=== PATIENT | male | born 1940 | race Caucasian/White ===

== ENCOUNTER 2017-11-22 07:57 | Emergency (ER) | payer MEDICAID ==
[2017-11-22 08:05] VITALS: BMI 41.5
--- NOTE | 2017-11-22 09:26 | ED PDOC ---
HPI: Back Time Seen by Provider: 11/22/17 08:25 Chief Complaint (Nursing): Lower Extremity Problem/Injury Chief Complaint (Provider): Low Back Pain History Per: Patient, Family (Son) History/Exam Limitations: no limitations Onset/Duration Of Symptoms: Other Current Symptoms Are (Timing): Still Present Additional Complaint(s): 77 y/o male with a PMHx of HTN, hypercholesterolemia, and BPH presenting for evaluation of low back pain. Patient was previously at this facility for intractable back pain and was discharged yesterday before the results of his MRI were read. MRI was found suspicious for osteomyelitis and discitis. This info was discussed with Dr. Cruz, neurologist, who recommended patient should have another MRI with contrast. Patient is here with family to receive MRI. Son states patient says his pain is a bit better, and patient is in no distress. PMD: Dr. Daniela Mckenna Past Medical History Reviewed: Historical Data, Nursing Documentation, Vital Signs Vital Signs: Last Vital Signs Temp 97 F L 11/22/17 08:03 Pulse 51 L 11/22/17 08:03 Resp BP 160/79 H 11/22/17 08:03 Pulse Ox 96 11/22/17 08:03 - Medical History PMH: Benign Prostatic Hyperplasia, HTN, Hypercholesterolemia - Surgical History Surgical History: No Surg Hx - Family History Family History: States: Unknown Family Hx - Social History Alcohol: None Drugs: Denies - Home Medications Home Medications: Ambulatory Orders Medication Instructions Recorded Allopurinol [Zyloprim] 300 mg PO DAILY 11/20/17 Aspirin [Ecotrin] 81 mg PO DAILY 11/20/17 Donepezil [Aricept] 5 mg PO HS 11/20/17 Finasteride [Proscar] 5 mg PO DAILY 11/20/17 GlipiZIDE [Glucotrol] 10 mg PO BID 11/20/17 Linaclotide [Linzess] 145 mg PO DAILY 11/20/17 Losartan/Hydrochlorothiazide 1 each PO DAILY 11/20/17 [Losartan-Hctz 50-12.5 mg Tab] Metformin HCl [Glucophage] 500 mg PO BID 11/20/17 Metoprolol Succinate [Toprol Xl] 25 mg PO DAILY 11/20/17 Omeprazole 20 mg PO DAILY 11/20/17 Oxybutynin Chloride [Ditropan Xl] 5 mg PO DAILY 11/20/17 Pravastatin Sodium [Pravachol] 40 mg PO DAILY 11/20/17 Tamsulosin [Flomax] 0.4 mg PO DAILY 11/20/17 Acetaminophen/Codeine NO 2 1 tab PO BID #10 tab 11/21/17 [Tylenol/Cod 300 MG-15 MG] Cyclobenzaprine [Flexeril] 5 mg PO HS #14 tab 11/21/17 - Allergies Allergies/Adverse Reactions: Allergies Allergy/AdvReac Type Severity Reaction Status Date / Time No Known Allergies Allergy Verified 11/20/17 18:21 Review of Systems ROS Statement: Except As Marked, All Systems Reviewed And Found Negative Musculoskeletal: Positive for: Back Pain Physical Exam - Reviewed Nursing Documentation Reviewed: Yes Vital Signs Reviewed: Yes - Physical Exam Appears: Positive for: Non-toxic, No Acute Distress Head Exam: Positive for: ATRAUMATIC, NORMAL INSPECTION, NORMOCEPHALIC Skin: Positive for: Normal Color, Warm, Dry. Negative for: Rash Eye Exam: Positive for: EOMI, Normal appearance, PERRL Neck: Positive for: Normal, Painless ROM, Supple Cardiovascular/Chest: Positive for: Regular Rate, Rhythm. Negative for: Murmur Respiratory: Positive for: Normal Breath Sounds. Negative for: Respiratory Distress Gastrointestinal/Abdominal: Positive for: Normal Exam, Soft. Negative for: Tenderness Back: Positive for: Normal Inspection Extremity: Positive for: Normal ROM. Negative for: Pedal Edema, Deformity Neurologic/Psych: Positive for: Alert, Oriented. Negative for: Motor/Sensory Deficits - ECG O2 Sat by Pulse Oximetry: 96 (RA) Pulse Ox Interpretation: Normal Medical Decision Making Medical Decision Makin:25 Impression: Low back pain Plan: -CRP -Erythrocyte sedimentation rate -MRI lumbar spine -Reevaluation Scribe Attestation: Documented by Abisai Jacobsen, acting as a scribe for Ping Buck MD. Provider Scribe Attestation: All medical record entries made by the Scribe were at my direction and personally dictated by me. I have reviewed the chart and agree that the record accurately reflects my personal performance of the history, physical exam, medical decision making, and the department course for this patient. I have also personally directed, reviewed, and agree with the discharge instructions and disposition. 2.00p - case d/w Dr. Mckenna. Admit to med/surg. ID and NSGY consult. Disposition - Clinical Impression Clinical Impression: Osteomyelitis of lumbar spine, Lumbar discitis - Patient ED Disposition Is Patient to be Admitted: Yes Doctor Will See Patient In The: Hospital - Disposition Disposition: Transfer of Care Disposition Time: 14:10 Condition: STABLE Instructions: Osteomyelitis Forms: [facility] (Maltese) - Pt Status Changed To: Hospital Disposition Of: Inpatient - Admit Certification Admit to Inpatient:: After my assessment, the patient will require hospitalization for at least two midnights. This is because of the severity of symptoms shown, intensity of services needed, and/or the medical risk in this patient being treated as an outpatient. - POA Present On Arrival: None
[2017-11-22] MEDS ORDERED: Gadodiamide 287 MG/ML VIAL (15ML) IV ONE (11:44)
[2017-11-22 13:50] VITALS: RESP 18
--- NOTE | 2017-11-22 14:08 | MRI ---
Date of service: 11/22/2017 PROCEDURE: LUMBAR SPINE MRI WITH AND WITHOUT CONTRAST HISTORY: back pain with abnormal MRI w/o contrast COMPARISON: Noncontrast lumbar spine MRI 11/21/2017. TECHNIQUE: An MR examination of the lumbar spine was performed using fat-suppressed T1 weighted imaging in sagittal and axial planes both prior to and following intravenous gadolinium administration. FINDINGS: There is a heterogeneous pattern of Marrow which is again identified throughout the lumbar spine as well as the visualized T12 vertebral body in a pattern that may reflect marrow disorder. No interval fracture or spondylolisthesis although numerous Schmorl's nodes are identified affecting upper and lower endplates from L2 through L5 once again. While there is limited enhancement is seen associated with degenerative endplates at L2, L3, L4 and L5, many of which are associated with Schmorl's node defects, the previously described signal abnormality at the inferior endplate of L2 and superior endplate of L3 enhances enhancement is prominent at the right paraspinal soft tissue within or medial to the upper right psoas muscle and pattern remains suggestive of limited discitis osteomyelitis and myositis or phlegmon medial to the upper right psoas muscle. Abscess is not favored here. This area measures approximately 1.2 x 3.2 x 2.1 cm lateral to the right of the L2-3 disc interspace level and right side of the L3 vertebral body. No definite suspicious epidural or intrathecal enhancement identified throughout the exam. [id number] degenerative central canal stenosis is again reiterated at L4-5. Incidental note is made once again of bilateral renal cysts, right greater than left. IMPRESSION: Enhancement at the mid to right side endplates of the L2-3 intervertebral disc space is identified while this could be at least in part on a degenerative basis greater enhances appreciated at the right paraspinal soft tissue within or medial to the right psoas muscle at this level and to the right of the L3 vertebral body level as well. Therefore the pattern suspicious for limited discitis osteomyelitis with right paraspinal phlegmon favored over abscess. Please see discussion above.
--- NOTE | 2017-11-22 16:20 | ED PDOC ---
- ECG O2 Sat by Pulse Oximetry: 96 (RA) Pulse Ox Interpretation: Normal Medical Decision Making Medical Decision Making: Time: [address] Buck. Patient with back pain and MRI study suggests possible discitis; patient pending Dr. Phelan (neurosurgery) advice. Time: 1515 Dr. Mckenna spoke with Dr. Phelan, who is requesting IR consult for possible biopsy. Time: [address] Fernandez, IR offset plate preparation supervisor, who states patient;s findings are too small for biopsy Time: [address] Phelan, who states patient can be discharged with instructions to follow up in 2 weeks for a repeat MRI and repeat bloodwork. Time: 1610 [address]charge plan discussed with Dr. Mckenna, who is agreeable. He states he will contact patient's son to come pick patient up. Findings and plan of discharge discussed with patient, who expresses understanding and is agreeable. Stable upon discharge home. Scribe Attestation: Documented by Rita Jimenez, acting as a scribe for Delphine Oliva MD Provider Scribe Attestation: All medical record entries made by the Scribe were at my direction and personally dictated by me. I have reviewed the chart and agree that the record accurately reflects my personal performance of the history, physical exam, medical decision making, and the department course for this patient. I have also personally directed, reviewed, and agree with the discharge instructions and disposition. Disposition - Clinical Impression Clinical Impression: Lumbar discitis - POA Present On Arrival: None - Disposition Referrals: Daniela Mckenna MD [Family Provider] - Disposition: Routine/Home Disposition Time: 16:10 Condition: STABLE Additional Instructions: FOLLOW UP WITH DR MCKENNA YOU NEED: REPEAT MRI AND LABS IN 2 WEEKS RETURN TO ER IMMEDIATELY FOR: -FEVER OR CHILLS -INTRACTABLE PAIN -URINE OR BOWEL INCONTINENCE OR RETENTION -DENSE NUMBNESS OR LEG WEAKNESS Instructions: Degenerative Disc Disease (DC) Forms: [employer] (Romans[place])
[2017-11-22 18:01] VITALS: BP 152/72; PULSE 84; TEMP 97.6
[2017-11-23 18:03] VITALS: O2SAT 96
== END 2017-11-22 17:20 | disposition home or self-care (01) ==
LOC: H.ER 07:57 → UNDOADMIN 14:35 → H.ERHOLD 14:35 → H.ER 17:20
DX: M46.46 Discitis, unspecified, lumbar region (principal)
CPT/HCPCS: 72149; 85651; 86140; 99284; A9579

== ENCOUNTER 2017-12-10 10:16 | Inpatient (IN) | payer MEDICAID ==
[2017-12-10 10:16] VITALS: BMI 41.5
--- NOTE | 2017-12-10 11:15 | ED PDOC ---
HPI: Back Time Seen by Provider: 12/10/17 11:13 Chief Complaint (Nursing): Back Pain Chief Complaint (Provider): back pain History Per: Family (77 y/o male here with complaint of right sided back pain ongoing x 3 months. Denies any dysuria/urinary frequency. Notes pain radiating to right leg intermittently. STates he was taking flexeril for pain and pain controlled. Has had MRI 11/22 demonstrating osteomyelitis/discitis. Patient was advised f/u outpatient. Currently, denies any fevers/chills. NOtes worsening pain after stopping medication and sent to ED by Dr. Mckenna.) Past Medical History Reviewed: Historical Data, Nursing Documentation, Vital Signs Vital Signs: Last Vital Signs Temp 98.4 F 12/10/17 10:22 Pulse 66 12/10/17 10:22 Resp 20 12/10/17 10:22 BP 129/80 12/10/17 10:22 Pulse Ox 94 L 12/10/17 10:22 - Medical History PMH: Benign Prostatic Hyperplasia, HTN, Hypercholesterolemia - Family History Family History: States: Unknown Family Hx - Home Medications Home Medications: Ambulatory Orders Medication Instructions Recorded Allopurinol [Zyloprim] 300 mg PO DAILY 11/20/17 Aspirin [Ecotrin] 81 mg PO DAILY 11/20/17 Donepezil [Aricept] 5 mg PO HS 11/20/17 Finasteride [Proscar] 5 mg PO DAILY 11/20/17 GlipiZIDE [Glucotrol] 10 mg PO BID 11/20/17 Linaclotide [Linzess] 145 mg PO DAILY 11/20/17 Losartan/Hydrochlorothiazide 1 each PO DAILY 11/20/17 [Losartan-Hctz 50-12.5 mg Tab] Metformin HCl [Glucophage] 500 mg PO BID 11/20/17 Metoprolol Succinate [Toprol Xl] 25 mg PO DAILY 11/20/17 Omeprazole 20 mg PO DAILY 11/20/17 Pravastatin Sodium [Pravachol] 40 mg PO DAILY 11/20/17 Tamsulosin [Flomax] 0.4 mg PO DAILY 11/20/17 Cyclobenzaprine [Flexeril] 5 mg PO HS #14 tab 11/21/17 Oxybutynin [Ditropan Tab] 5 mg PO DAILY 11/22/17 - Allergies Allergies/Adverse Reactions: Allergies Allergy/AdvReac Type Severity Reaction Status Date / Time No Known Allergies Allergy Verified 11/20/17 18:21 Review of Systems ROS Statement: Except As Marked, All Systems Reviewed And Found Negative Physical Exam - Reviewed Nursing Documentation Reviewed: Yes Vital Signs Reviewed: Yes - Physical Exam Appears: Positive for: Well, Non-toxic, No Acute Distress Head Exam: Positive for: ATRAUMATIC, NORMAL INSPECTION, NORMOCEPHALIC Skin: Positive for: Normal Color, Warm, DRY Eye Exam: Positive for: EOMI, Normal appearance, PERRL ENT: Positive for: Normal ENT Inspection Neck: Positive for: Normal, Painless ROM Cardiovascular/Chest: Positive for: Regular Rate, Rhythm Respiratory: Positive for: CNT, Normal Breath Sounds Gastrointestinal/Abdominal: Positive for: Normal Exam, Soft, Tenderness (right flank tenderness. ) Back: Positive for: Normal Inspection, Other (No bony tenderness elicited.). Negative for: R CVA Tenderness Extremity: Positive for: Normal ROM Neurologic/Psych: Positive for: Alert, Oriented - Laboratory Results Result Diagrams: 12/10/17 12:38 12/10/17 12:38 - ECG O2 Sat by Pulse Oximetry: 94 - Progress ED Course And Treament: CT ABD/PELVIS: IMPRESSION: No acute abdominal or pelvic abnormality. Little interval change 8.2 x 12.0 x 11.0 cm exophytic simple cyst in the lower pole of the right kidney. Bilateral moderate sized inguinal hernia with herniation of portion of the right lateral urinary bladder into the right inguinal hernia. The left inguinal hernia is predominantly contains fat. No other significant interval change 3 CXR:NAD MRI L SPINE: IMPRESSION: 1. Interval increase in size of right paraspinous/medial psoas phlegmon at L3 now measuring 2.7 x 1.7 x 4.7 cm. No evidence of epidural abscess. 2. Redemonstration of discitis osteomyelitis at L2-3, L3-4 and L4-5, worse at L2 -3. 3. Additional comments as described above. CASE D/W DR. MCKENNA. D/W DR. SANTIZO NEUROSURGERY WHO STATES ABSCESS IS PARASPINOUS NO NEUROSURGERY INVOLVEMENT NECESSARY. D/W INTERVENTIONAL RADIOLOGY DR. EAST WHO WILL REVIEW MRI FOR POSSIBLE IR DRAINAGE OF ABSCESS. NO ANTIBIOTICS AT THIS TIME REQUESTED BY DR. MCKENNA. WILL ADMIT TO HIM FOR FURTHER EVALUATION. Disposition - Clinical Impression Clinical Impression: Abscess of paraspinous muscles - Patient ED Disposition Is Patient to be Admitted: Yes - Disposition Disposition Time: 15:54 Condition: FAIR - Pt Status Changed To: Hospital Disposition Of: Inpatient - Admit Certification Admit to Inpatient:: After my assessment, the patient will require hospitalization for at least two midnights. This is because of the severity of symptoms shown, intensity of services needed, and/or the medical risk in this patient being treated as an outpatient.
[2017-12-10 12:50] LABS: BASO # 0.1 K/uL (0.0-0.2); BASO % 0.9 % (0.0-2.0); EOS # 0.5 K/uL (0.0-0.7); EOS % 7.4 % (0.0-4.0); LYMPH # 2.9 K/uL (1.0-4.3); LYMPH % 41.9 % (20.0-40.0); MEAN CELL VOLUME 81.9 fl (80.0-94.0); MEAN CORPUSCULAR HEMOGLOBIN 26.7 pg (27.0-31.0); MEAN CORPUSCULAR HGB CONC 32.6 g/dL (33.0-37.0); MEAN PLATELET VOLUME 8.7 fl (7.2-11.7); MONO # 0.6 K/uL (0.0-0.8); MONO % 8.4 % (0.0-10.0); NEUT # 2.9 K/uL (1.8-7.0); NEUT % 41.4 % (50.0-75.0); NRBC % 0.2 % (0.0-0.0); RBC 5.62 Mil/uL (4.40-5.90); RED CELL DISTRIBUTION WIDTH 17.6 % (11.5-14.5); WHITE BLOOD COUNT 6.9 K/uL (4.8-10.8)
[2017-12-10 12:51] LABS: ALB/GLOB RATIO 1.6 (1.0-2.1); ALT/SGPT 41 U/L (21-72); AST/SGOT 25 U/L (17-59); BLOOD UREA NITROGEN 28 mg/dl (9-20); CALCIUM 9.3 mg/dL (8.4-10.2); GFR AFRICAN-AMERICAN > 60; GFR NON-AFRICAN AMERICAN > 60; LIPASE 61 U/L (23-300)
[2017-12-10] MEDS ORDERED: Gadodiamide 287 MG/ML VIAL (15ML) IV ONE (13:06)
[2017-12-10 13:10] LABS: URINE BILIRUBIN NEGATIVE (NEGATIVE); URINE BLOOD NEGATIVE (NEGATIVE); URINE CLARITY CLEAR (Clear); URINE COLOR YELLOW (YELLOW); URINE GLUCOSE (UA) NEG (Normal); URINE LEUKOCYTE ESTERASE NEG Leu/uL (Negative); URINE PROTEIN 100 mg/dL (NEGATIVE); URINE UROBILINOGEN 0.2-1.0 mg/dL (0.2-1.0)
--- NOTE | 2017-12-10 13:11 | CT ---
Date of service: 12/10/2017 PROCEDURE: CT Abdomen and Pelvis without intravenous contrast HISTORY: right flank pain x 3 months worsening COMPARISON: None. TECHNIQUE: CT scan of the abdomen and pelvis was performed without administration of intravenous contrast. Oral contrast was not administered. Coronal and sagittal reformatted images were obtained. . Radiation dose: Total exam DLP = 940.04 mGy-cm. This CT exam was performed using one or more of the following dose reduction techniques: Automated exposure control, adjustment of the mA and/or kV according to patient size, and/or use of iterative reconstruction technique. FINDINGS: LOWER THORAX: There is dependent atelectasis in the lung bases. LIVER: Normal in size. No intrahepatic ductal dilatation. GALLBLADDER AND BILE DUCTS: No calcified gallstones. No biliary dilatation PANCREAS: Normal in size. No ductal dilatation. SPLEEN: Normal in size. ADRENALS: Normal in size. No discrete nodule. KIDNEYS AND URETERS: Normal in size without nephrolithiasis. No hydronephrosis. There are stable simple cysts, the largest 8.2 x 12.0 x 11.0 cm exophytic simple cyst in the lower pole of the right kidney, not significantly changed in size and appearance since the prior examination. VASCULATURE: No aortic aneurysm. BOWEL: The small bowel loops are normal in caliber. The colon is normal in size. No bowel dilatation or wall thickening. No bowel obstruction. APPENDIX: Normal appendix. PERITONEUM: No free fluid. No free air. LYMPH NODES: No enlarged lymph nodes. BLADDER: Well distended and grossly normal in appearance. REPRODUCTIVE: The prostate gland is normal in size BONES: No acute fracture. Diffuse bone demineralization. Ankylosing spondylitis in the visualized thoracic and upper lumbar spine. Large multilevel Schmorl's nodes in the lower lumbar vertebral bodies. OTHER FINDINGS: There are bilateral moderate sized fat containing inguinal hernias. There is herniation of part of the right lateral urinary bladder into the node right inguinal hernia. IMPRESSION: No acute abdominal or pelvic abnormality. Little interval change 8.2 x 12.0 x 11.0 cm exophytic simple cyst in the lower pole of the right kidney. Bilateral moderate sized inguinal hernia with herniation of portion of the right lateral urinary bladder into the right inguinal hernia. The left inguinal hernia is predominantly contains fat. No other significant interval change 3
--- NOTE | 2017-12-10 13:38 | RAD ---
Date of service: 12/10/2017 HISTORY: routine COMPARISON: No prior. TECHNIQUE: Chest PA and lateral FINDINGS: LUNGS: Hyperinflation, manifestations of COPD. No active pulmonary disease. PLEURA: No significant pleural effusion identified. No pneumothorax apparent. CARDIOVASCULAR: Cardiomegaly, tortuous thoracic aorta. OSSEOUS STRUCTURES: No significant abnormalities. VISUALIZED UPPER ABDOMEN: Normal. OTHER FINDINGS: None. IMPRESSION: No active disease.
--- NOTE | 2017-12-10 14:57 | MRI ---
Date of service: 12/10/2017 PROCEDURE: MR LUMBAR SPINE WITH AND WITHOUT CONTRAST HISTORY: h/o osteomyelitis/discitis on previous mri COMPARISON: 11/21/2017 TECHNIQUE: Multiecho multiplanar sequences were performed through the lumbar spine with and without the use of intravenous contrast. 20 cc Omniscan was injected intravenously. FINDINGS: There is normal alignment of the lumbar vertebral bodies. There is normal lumbar lordosis. Bone marrow signal is heterogeneous without evidence for abnormal enhancement. There are multilevel Schmorl's nodes in the lumbar spine. The conus medullaris terminates at a normal level and the nerve roots of cauda equina are normal. There is interval increase in size of abnormal enhancing area in the right paravertebral region and involving the medial psoas muscle at L3 now measuring 2.7 x 1.7 x 4.7 cm. Incompletely imaged are simple cysts in both kidneys. There is multilevel disc degeneration with loss of T2 signal and desiccation of the T12-L1 and L1-2 discs. Also noted is abnormal T2 hyperintense signal in the L1-2 disc and in the midportion of the L2-3 disc. There is abnormal peripheral disc/ endplate marrow enhancement at L2-3, L3-4 and L4-5, worse at L2-3 corresponding to the area of abnormal signal. No significant interval change since the prior examination. T12-L1: No disc herniation, spinal canal stenosis or neural foraminal narrowing. L1-2: No large disc herniation, spinal canal stenosis or neural foraminal narrowing. L2-3: Posterior disc bulge without spinal canal stenosis or neural foraminal narrowing. L3-4: Posterior disc bulge without spinal canal stenosis or neural foraminal narrowing. L4-5: Diffuse posterior disc bulge with superimposed central, right posterolateral and foraminal disc protrusions which in combination with mild ligamentum flavum infolding result in mild spinal canal stenosis. Moderate bilateral facet arthropathy contribute to moderate right and mild left neural foraminal narrowing. L5-S1: No disc herniation, spinal canal stenosis or neural foraminal narrowing. OTHER FINDINGS: None. IMPRESSION: 1. Interval increase in size of right paraspinous/medial psoas phlegmon at L3 now measuring 2.7 x 1.7 x 4.7 cm. No evidence of epidural abscess. 2. Redemonstration of discitis osteomyelitis at L2-3, L3-4 and L4-5, worse at L2-3. 3. Additional comments as described above.
--- NOTE | 2017-12-10 15:45 | CP.PCM.PN ---
Subjective - Date & Time of Evaluation Date of Evaluation: 12/10/17 Time of Evaluation: 15:42 - Subjective Subjective: called by ER PA reviewed MRI Ostro/discitis not significantly differenet from November in paraspinal phlegmon size The treatment for discitis /osteo without significant epidural component is antibiotics Drainage/debredment of psoas muscle abscess is not done by us but either by gen surgery or interventional radiology Objective - Vital Signs/Intake and Output Vital Signs (last 24 hours): Temp Pulse Resp BP Pulse Ox 98.4 F 66 20 129/80 94 L 12/10/17 10:22 12/10/17 10:22 12/10/17 10:22 12/10/17 10:22 12/10/17 15:34 - Labs Labs: 12/10/17 12:38 12/10/17 12:38
[2017-12-10 17:18] LABS: VENOUS BLOOD GAS BASE EXCESS 1.7 mmol/L (0.0-2.0); VENOUS BLOOD GAS PCO2 42 mmHg (40-60); VENOUS BLOOD GAS PO2 57 mm/Hg (30-55); VENOUS BLOOD PH 7.41 (7.32-7.43)
[2017-12-10] MEDS ORDERED: [UNRECOGNIZED DRUG - REMARK] PO PRN (18:39)
[2017-12-10 18:46] LABS: PROTHROMBIN TIME 11.2 Seconds (9.8-13.1)
[2017-12-10 18:48] LABS: PARTIAL THROMBOPLASTIN TIME 33.8 Seconds (25.6-37.1)
[2017-12-10] MEDS ORDERED: CYCLOBENZAPRINE 5 MG PO SCH (22:00)
[2017-12-10] MEDS: Insulin Lispro (humaLOG) 100 Units/ml Inj SC SCH (22:50)
--- NOTE | 2017-12-11 07:22 | CARD ---
APPROVED REPORT Date of service: 12/10/2017 <Conclusion> Sinus rhythm with marked sinus arrhythmia Left axis deviation Inferior-posterior infarct, age undetermined Abnormal ECG
[2017-12-11 08:47] VITALS: RESP 18
[2017-12-11] MEDS ORDERED: Metoprolol Succinate 25 mg XL Tab PO SCH (09:00)
[2017-12-11] MEDS ORDERED: Pravastatin Sodium 40 MG TAB PO SCH (09:00)
[2017-12-11] MEDS ORDERED: Pantoprazole 20 mg EC Tab PO SCH (09:00)
[2017-12-11] MEDS ORDERED: HCTZ/Losartan 12.5/50 Tab PO SCH (09:00)
[2017-12-11] MEDS: Insulin Lispro (humaLOG) 100 Units/ml Inj SC SCH ×2 (09:37→16:39)
--- NOTE | 2017-12-11 10:36 | PCM.IRP ---
Chief Complaint: IR consulted for drainaing of right psoas collection.,. MRI reviewed. The collection is phlegmatous changes and not amenable to percutaneous drainage. Objective - Vital Signs/Intake and Output Vital Signs (last 24 hours): Vital Signs - 24 hr 12/10/17 12/10/17 12/10/17 15:55 17:54 18:19 Temperature 98.9 F 97.6 F Pulse Rate 66 77 Pulse Rate [ Bilateral Radial] Respiratory 18 20 Rate Blood Pressure 116/78 133/74 O2 Sat by Pulse 94 L 95 95 Oximetry 12/10/17 12/11/17 12/11/17 23:34 00:50 08:41 Temperature 98.3 F 98.5 F Pulse Rate 60 60 Pulse Rate [ 77 Bilateral Radial] Respiratory 18 20 18 Rate Blood Pressure 143/82 149/83 O2 Sat by Pulse 95 94 L 100 Oximetry 12/11/17 09:41 Temperature Pulse Rate 60 Pulse Rate [ Bilateral Radial] Respiratory Rate Blood Pressure 149/83 O2 Sat by Pulse Oximetry Intake and Output (last 12 hours): Intake & Output 12/10/17 12/11/17 12/11/17 18:59 06:59 18:59 Weight 250 lb - Medications Medications: Current Medications Acetaminophen/Codeine Phosphate (Tylenol/Cod 300 Mg-15 Mg) 1 tab PO Q12 PRN PRN Reason: Pain, moderate (4-7) Allopurinol (Zyloprim) 300 mg PO DAILY [facility] Aspirin (Ecotrin) 81 mg PO DAILY [facility] Cyclobenzaprine HCl (Flexeril) 5 mg PO HS [facility] Last Admin: 12/10/17 22:06 Dose: 5 mg Donepezil HCl (Aricept) 5 mg PO HS [facility] Last Admin: 12/10/17 22:06 Dose: 5 mg Finasteride (Proscar) 5 mg PO DAILY [facility] Glipizide (Glucotrol) 10 mg PO BID [facility] HCTZ/Losartan Potassium (Hyzaar 12.5 Mg-50 Mg) 1 tab PO DAILY [facility] Last Admin: 12/11/17 09:41 Dose: 1 tab Home Med (Lubiprostone [Amitiza]) 24 mcg PO DAILY [facility] Insulin Human Lispro (Humalog) 0 units SC ACHS [facility] PRN Reason: Protocol Last Admin: 12/11/17 09:37 Dose: Not Given Metformin HCl (Glucophage) 500 mg PO BID [facility] Metoprolol Succinate (Toprol Xl) 25 mg PO DAILY [facility] Last Admin: 12/11/17 09:41 Dose: 25 mg Oxybutynin Chloride (Ditropan Tab) 5 mg PO DAILY [facility] Pantoprazole Sodium (Protonix Ec Tab) 20 mg PO DAILY [facility] Pravastatin Sodium (Pravachol) 40 mg PO DAILY [facility] Tamsulosin HCl (Flomax) 0.4 mg PO DAILY [facility] - Labs Labs (last 24 hours): Laboratory Results - last 24 hr 12/10/17 12/10/17 12/10/17 12:38 12:38 12:51 WBC 6.9 RBC 5.62 Hgb 15.0 Hct 46.1 MCV 81.9 MCH 26.7 L MCHC 32.6 L RDW 17.6 H Plt Count 168 MPV 8.7 Neut % (Auto) 41.4 L Lymph % (Auto) 41.9 H [place] % (Auto) 8.4 Eos % (Auto) 7.4 H Baso % (Auto) 0.9 Neut # (Auto) 2.9 Lymph # (Auto) 2.9 [place] # (Auto) 0.6 Eos # (Auto) 0.5 Baso # (Auto) 0.1 ESR PT INR APTT pO2 VBG pH VBG pCO2 VBG HCO3 VBG Total CO2 VBG O2 Sat (Calc) VBG Base Excess VBG Potassium Glucose Lactate FiO2 Sodium 143 Potassium 4.3 Chloride 106 Carbon Dioxide 25 Anion Gap 16 BUN 28 H Creatinine 1.1 Est GFR ( Amer) > 60 Est GFR (Non-Af Amer) > 60 POC Glucose (mg/dL) Random Glucose 111 H Calcium 9.3 Total Bilirubin 1.2 AST 25 ALT 41 Alkaline Phosphatase 63 Total Protein 6.6 Albumin 4.0 Globulin 2.5 Albumin/Globulin Ratio 1.6 Lipase 61 Venous Blood Potassium Urine Color Yellow Urine Clarity Clear Urine pH 5.0 Ur Specific [place] 1.014 Urine Protein 100 Urine Glucose (UA) Neg Urine Ketones Negative Urine Blood Negative Urine Nitrate Negative Urine Bilirubin Negative Urine Urobilinogen 0.2-1.0 Ur Leukocyte Esterase Neg Urine RBC (Auto) 2 Urine Microscopic WBC 1 12/10/17 12/10/17 12/10/17 16:39 17:14 18:30 WBC RBC Hgb Hct MCV MCH MCHC RDW Plt Count MPV Neut % (Auto) Lymph % (Auto) [place] % (Auto) Eos % (Auto) Baso % (Auto) Neut # (Auto) Lymph # (Auto) [place] # (Auto) Eos # (Auto) Baso # (Auto) ESR 12 PT 11.2 INR 1.0 APTT 33.8 pO2 57 H VBG pH 7.41 VBG pCO2 42 VBG HCO3 26.0 VBG Total CO2 27.9 VBG O2 Sat (Calc) 90.9 H VBG Base Excess 1.7 VBG Potassium 4.0 Glucose 154 H Lactate 2.4 H FiO2 21.0 Sodium 138.0 Potassium Chloride 104.0 Carbon Dioxide Anion Gap BUN Creatinine Est GFR ( Amer) Est GFR (Non-Af Amer) POC Glucose (mg/dL) Random Glucose Calcium Total Bilirubin AST ALT Alkaline Phosphatase Total Protein Albumin Globulin Albumin/Globulin Ratio Lipase Venous Blood Potassium 4.0 Urine Color Urine Clarity Urine pH Ur Specific [place] Urine Protein Urine Glucose (UA) Urine Ketones Urine Blood Urine Nitrate Urine Bilirubin Urine Urobilinogen Ur Leukocyte Esterase Urine RBC (Auto) Urine Microscopic WBC 12/10/17 12/11/17 12/11/17 22:44 05:41 07:34 WBC 5.9 RBC Hgb Hct MCV MCH MCHC RDW Plt Count MPV Neut % (Auto) Lymph % (Auto) [place] % (Auto) Eos % (Auto) Baso % (Auto) Neut # (Auto) Lymph # (Auto) [place] # (Auto) Eos # (Auto) Baso # (Auto) ESR PT INR APTT pO2 VBG pH VBG pCO2 VBG HCO3 VBG Total CO2 VBG O2 Sat (Calc) VBG Base Excess VBG Potassium Glucose Lactate FiO2 Sodium Potassium Chloride Carbon Dioxide Anion Gap BUN Creatinine Est GFR ( Amer) Est GFR (Non-Af Amer) POC Glucose (mg/dL) 154 H 104 Random Glucose Calcium Total Bilirubin AST ALT Alkaline Phosphatase Total Protein Albumin Globulin Albumin/Globulin Ratio Lipase Venous Blood Potassium Urine Color Urine Clarity Urine pH Ur Specific [place] Urine Protein Urine Glucose (UA) Urine Ketones Urine Blood Urine Nitrate Urine Bilirubin Urine Urobilinogen Ur Leukocyte Esterase Urine RBC (Auto) Urine Microscopic WBC
--- NOTE | 2017-12-11 11:45 | CP.PCM.CON ---
History of Present Illness - History of Present Illness History of Present Illness: Infectious Disease Consultation Note- asked to see this patient at the request of for ? subacute diskitis/Om HPI- History obtained from pt's son ( pt. does not speak Divehi) who is at bedside and . Patient is a pleasant 77 year old Burkin[place] male with PMH of DM II, HTN who was admitted with c/o right lower back/hip pain radiating to right leg. Apparently pt. fell at home 3 months ago ( no fracture as per his son) and sicne then he has been c/o of this right lower back/hip pain. Pt. apparently came to ED 3 weeks ago with same complaint and had MRi which was read as diskitis/ ? OM of the spine and Neurosurgeon had rec to d/c pt home and repeat the MRI in few weeks as pt. did not have any fever or any signs of sepsis. Now I'm asked to evaluate the patient because MRI now has similar reading as last reading and as per IR no fluid to aspirate and culture and as per neurosurgery no Neurosurgical intervention. Pt. denies any fever or chills, denies any CAMERON, denies any abd. pain, denies any nausea or vomiting, denies any dysurea, denies any diarrhea, denies any cough or sob, denies any chest pain, + right hip/pain radiating to rioght leg, denies any numbness or tingling of the legs or feet, denies any loss of bowel or bladder. Review of Systems - Review of Systems Review of Systems: ROS- as stated in HPI Past Patient History - Infectious Disease Hx of Infectious Diseases: None - Past Medical History & Family History Past Medical History?: Yes - Past Social History Smoking Status: Never Smoked Alcohol: None Drugs: Denies Home Situation {Lives}: With Family - CARDIAC Hx Cardiac Disorders: Yes Hx Hypercholesterolemia: Yes Hx Hypertension: Yes - PULMONARY Hx Respiratory Disorders: No - NEUROLOGICAL Hx Neurological Disorder: No - HEENT Hx HEENT Problems: Yes Hx Cataracts: Yes Other/Comment: hx of cataract surgery - RENAL Hx Chronic Kidney Disease: No - ENDOCRINE/METABOLIC Hx Endocrine Disorders: Yes Hx Diabetes Mellitus Type 2: Yes - HEMATOLOGICAL/ONCOLOGICAL Hx Blood Disorders: No - INTEGUMENTARY Hx Dermatological Problems: No - MUSCULOSKELETAL/RHEUMATOLOGICAL Hx Musculoskeletal Disorders: Yes Hx Falls: Yes (3-4 months ago) - GASTROINTESTINAL Hx Gastrointestinal Disorders: Yes Hx Gastroesophageal Reflux: Yes - GENITOURINARY/GYNECOLOGICAL Hx Genitourinary Disorders: Yes Hx Prostate Problems: Yes (hx of BPH) - PSYCHIATRIC Hx Psychophysiologic Disorder: No Hx Substance Use: No - SURGICAL HISTORY Hx Surgeries: Yes Hx Cataract Extraction: Yes Hx Cardiac Catheterization: Yes Other/Comment: Prostate surgery - ANESTHESIA Hx Anesthesia: Yes Hx Anesthesia Reactions: No Hx Malignant Hyperthermia: No Meds Allergies/Adverse Reactions: Allergies Allergy/AdvReac Type Severity Reaction Status Date / Time No Known Allergies Allergy Verified 11/20/17 18:21 - Medications Medications: Current Medications Acetaminophen/Codeine Phosphate (Tylenol/Cod 300 Mg-15 Mg) 1 tab PO Q12 PRN PRN Reason: Pain, moderate (4-7) Allopurinol (Zyloprim) 300 mg PO DAILY [facility] Last Admin: 12/11/17 10:44 Dose: 300 mg Aspirin (Ecotrin) 81 mg PO DAILY [facility] Last Admin: 12/11/17 10:43 Dose: 81 mg Cyclobenzaprine HCl (Flexeril) 5 mg PO HS [facility] Last Admin: 12/10/17 22:06 Dose: 5 mg Donepezil HCl (Aricept) 5 mg PO HS [facility] Last Admin: 12/10/17 22:06 Dose: 5 mg Finasteride (Proscar) 5 mg PO DAILY [facility] Last Admin: 12/11/17 10:44 Dose: 5 mg Glipizide (Glucotrol) 10 mg PO BID [facility] Last Admin: 12/11/17 10:44 Dose: 10 mg HCTZ/Losartan Potassium (Hyzaar 12.5 Mg-50 Mg) 1 tab PO DAILY [facility] Last Admin: 12/11/17 09:41 Dose: 1 tab Home Med (Lubiprostone [Amitiza]) 24 mcg PO DAILY [facility] Insulin Human Lispro (Humalog) 0 units SC ACHS [facility] PRN Reason: Protocol Last Admin: 12/11/17 09:37 Dose: Not Given Metformin HCl (Glucophage) 500 mg PO BID [facility] Last Admin: 12/11/17 10:44 Dose: 500 mg Metoprolol Succinate (Toprol Xl) 25 mg PO DAILY [facility] Last Admin: 12/11/17 09:41 Dose: 25 mg Oxybutynin Chloride (Ditropan Tab) 5 mg PO DAILY [facility] Last Admin: 12/11/17 10:43 Dose: 5 mg Pantoprazole Sodium (Protonix Ec Tab) 20 mg PO DAILY [facility] Last Admin: 12/11/17 10:44 Dose: 20 mg Pravastatin Sodium (Pravachol) 40 mg PO DAILY [facility] Last Admin: 12/11/17 10:44 Dose: 40 mg Tamsulosin HCl (Flomax) 0.4 mg PO DAILY [facility] Last Admin: 12/11/17 10:43 Dose: 0.4 mg Physical Exam - Constitutional Appears: Non-toxic, No Acute Distress - Head Exam Head Exam: ATRAUMATIC - Eye Exam Eye Exam: EOMI, PERRL - ENT Exam ENT Exam: Normal Oropharynx - Neck Exam Neck exam: Positive for: Full Rom - Respiratory Exam Respiratory Exam: Clear to Auscultation Bilateral, NORMAL BREATHING PATTERN - Cardiovascular Exam Cardiovascular Exam: RRR, +S1, +S2 - GI/Abdominal Exam GI & Abdominal Exam: Normal Bowel Sounds, Soft Additional comments: NT, ND No guarding, No rebound - Extremities Exam Extremities exam: Positive for: normal inspection - Back Exam Additional comments: no tenderness in the vertebral region, no swelling, no erythema + tenderness in right hip region and pain with bending of the right leg in the right hip region - Neurological Exam Neurological exam: Alert, Oriented x3 Results - Vital Signs Recent Vital Signs: Last Vital Signs Temp 98.5 F 12/11/17 08:41 Pulse 60 12/11/17 09:41 Resp 18 12/11/17 08:41 BP 149/83 12/11/17 09:41 Pulse Ox 100 12/11/17 08:41 - Labs Result Diagrams: 12/11/17 07:34 12/10/17 12:38 Labs: Laboratory Results - last 24 hr 12/10/17 12/10/17 12/10/17 12:38 12:38 12:51 WBC 6.9 RBC 5.62 Hgb 15.0 Hct 46.1 MCV 81.9 MCH 26.7 L MCHC 32.6 L RDW 17.6 H Plt Count 168 MPV 8.7 Neut % (Auto) 41.4 L Lymph % (Auto) 41.9 H [place] % (Auto) 8.4 Eos % (Auto) 7.4 H Baso % (Auto) 0.9 Neut # (Auto) 2.9 Lymph # (Auto) 2.9 [place] # (Auto) 0.6 Eos # (Auto) 0.5 Baso # (Auto) 0.1 ESR PT INR APTT pO2 VBG pH VBG pCO2 VBG HCO3 VBG Total CO2 VBG O2 Sat (Calc) VBG Base Excess VBG Potassium Glucose Lactate FiO2 Sodium 143 Potassium 4.3 Chloride 106 Carbon Dioxide 25 Anion Gap 16 BUN 28 H Creatinine 1.1 Est GFR ( Amer) > 60 Est GFR (Non-Af Amer) > 60 POC Glucose (mg/dL) Random Glucose 111 H Calcium 9.3 Total Bilirubin 1.2 AST 25 ALT 41 Alkaline Phosphatase 63 Total Protein 6.6 Albumin 4.0 Globulin 2.5 Albumin/Globulin Ratio 1.6 Lipase 61 Venous Blood Potassium Urine Color Yellow Urine Clarity Clear Urine pH 5.0 Ur Specific [place] 1.014 Urine Protein 100 Urine Glucose (UA) Neg Urine Ketones Negative Urine Blood Negative Urine Nitrate Negative Urine Bilirubin Negative Urine Urobilinogen 0.2-1.0 Ur Leukocyte Esterase Neg Urine RBC (Auto) 2 Urine Microscopic WBC 1 12/10/17 12/10/17 12/10/17 16:39 17:14 18:30 WBC RBC Hgb Hct MCV MCH MCHC RDW Plt Count MPV Neut % (Auto) Lymph % (Auto) [place] % (Auto) Eos % (Auto) Baso % (Auto) Neut # (Auto) Lymph # (Auto) [place] # (Auto) Eos # (Auto) Baso # (Auto) ESR 12 PT 11.2 INR 1.0 APTT 33.8 pO2 57 H VBG pH 7.41 VBG pCO2 42 VBG HCO3 26.0 VBG Total CO2 27.9 VBG O2 Sat (Calc) 90.9 H VBG Base Excess 1.7 VBG Potassium 4.0 Glucose 154 H Lactate 2.4 H FiO2 21.0 Sodium 138.0 Potassium Chloride 104.0 Carbon Dioxide Anion Gap BUN Creatinine Est GFR ( Amer) Est GFR (Non-Af Amer) POC Glucose (mg/dL) Random Glucose Calcium Total Bilirubin AST ALT Alkaline Phosphatase Total Protein Albumin Globulin Albumin/Globulin Ratio Lipase Venous Blood Potassium 4.0 Urine Color Urine Clarity Urine pH Ur Specific [place] Urine Protein Urine Glucose (UA) Urine Ketones Urine Blood Urine Nitrate Urine Bilirubin Urine Urobilinogen Ur Leukocyte Esterase Urine RBC (Auto) Urine Microscopic WBC 12/10/17 12/11/17 12/11/17 22:44 05:41 07:34 WBC 5.9 RBC Hgb Hct MCV MCH MCHC RDW Plt Count MPV Neut % (Auto) Lymph % (Auto) [place] % (Auto) Eos % (Auto) Baso % (Auto) Neut # (Auto) Lymph # (Auto) [place] # (Auto) Eos # (Auto) Baso # (Auto) ESR PT INR APTT pO2 VBG pH VBG pCO2 VBG HCO3 VBG Total CO2 VBG O2 Sat (Calc) VBG Base Excess VBG Potassium Glucose Lactate FiO2 Sodium Potassium Chloride Carbon Dioxide Anion Gap BUN Creatinine Est GFR ( Amer) Est GFR (Non-Af Amer) POC Glucose (mg/dL) 154 H 104 Random Glucose Calcium Total Bilirubin AST ALT Alkaline Phosphatase Total Protein Albumin Globulin Albumin/Globulin Ratio Lipase Venous Blood Potassium Urine Color Urine Clarity Urine pH Ur Specific [place] Urine Protein Urine Glucose (UA) Urine Ketones Urine Blood Urine Nitrate Urine Bilirubin Urine Urobilinogen Ur Leukocyte Esterase Urine RBC (Auto) Urine Microscopic WBC 12/11/17 10:40 WBC RBC Hgb Hct MCV MCH MCHC RDW Plt Count MPV Neut % (Auto) Lymph % (Auto) [place] % (Auto) Eos % (Auto) Baso % (Auto) Neut # (Auto) Lymph # (Auto) [place] # (Auto) Eos # (Auto) Baso # (Auto) ESR PT INR APTT pO2 VBG pH VBG pCO2 VBG HCO3 VBG Total CO2 VBG O2 Sat (Calc) VBG Base Excess VBG Potassium Glucose Lactate FiO2 Sodium Potassium Chloride Carbon Dioxide Anion Gap BUN Creatinine Est GFR ( Amer) Est GFR (Non-Af Amer) POC Glucose (mg/dL) 147 H Random Glucose Calcium Total Bilirubin AST ALT Alkaline Phosphatase Total Protein Albumin Globulin Albumin/Globulin Ratio Lipase Venous Blood Potassium Urine Color Urine Clarity Urine pH Ur Specific [place] Urine Protein Urine Glucose (UA) Urine Ketones Urine Blood Urine Nitrate Urine Bilirubin Urine Urobilinogen Ur Leukocyte Esterase Urine RBC (Auto) Urine Microscopic WBC Laboratory Results - last 72 hr 12/10/17 12/10/17 12/10/17 12:38 12:38 12:51 WBC 6.9 RBC 5.62 Hgb 15.0 Hct 46.1 MCV 81.9 MCH 26.7 L MCHC 32.6 L RDW 17.6 H Plt Count 168 MPV 8.7 Neut % (Auto) 41.4 L Lymph % (Auto) 41.9 H [place] % (Auto) 8.4 Eos % (Auto) 7.4 H Baso % (Auto) 0.9 Neut # (Auto) 2.9 Lymph # (Auto) 2.9 [place] # (Auto) 0.6 Eos # (Auto) 0.5 Baso # (Auto) 0.1 ESR PT INR APTT pO2 VBG pH VBG pCO2 VBG HCO3 VBG Total CO2 VBG O2 Sat (Calc) VBG Base Excess VBG Potassium Glucose Lactate FiO2 Sodium 143 Potassium 4.3 Chloride 106 Carbon Dioxide 25 Anion Gap 16 BUN 28 H Creatinine 1.1 Est GFR ( Amer) > 60 Est GFR (Non-Af Amer) > 60 POC Glucose (mg/dL) Random Glucose 111 H Calcium 9.3 Total Bilirubin 1.2 AST 25 ALT 41 Alkaline Phosphatase 63 Total Protein 6.6 Albumin 4.0 Globulin 2.5 Albumin/Globulin Ratio 1.6 Lipase 61 Venous Blood Potassium Urine Color Yellow Urine Clarity Clear Urine pH 5.0 Ur Specific [place] 1.014 Urine Protein 100 Urine Glucose (UA) Neg Urine Ketones Negative Urine Blood Negative Urine Nitrate Negative Urine Bilirubin Negative Urine Urobilinogen 0.2-1.0 Ur Leukocyte Esterase Neg Urine RBC (Auto) 2 Urine Microscopic WBC 1 12/10/17 12/10/17 12/10/17 16:39 17:14 18:30 WBC RBC Hgb Hct MCV MCH MCHC RDW Plt Count MPV Neut % (Auto) Lymph % (Auto) [place] % (Auto) Eos % (Auto) Baso % (Auto) Neut # (Auto) Lymph # (Auto) [place] # (Auto) Eos # (Auto) Baso # (Auto) ESR 12 PT 11.2 INR 1.0 APTT 33.8 pO2 57 H VBG pH 7.41 VBG pCO2 42 VBG HCO3 26.0 VBG Total CO2 27.9 VBG O2 Sat (Calc) 90.9 H VBG Base Excess 1.7 VBG Potassium 4.0 Glucose 154 H Lactate 2.4 H FiO2 21.0 Sodium 138.0 Potassium Chloride 104.0 Carbon Dioxide Anion Gap BUN Creatinine Est GFR ( Amer) Est GFR (Non-Af Amer) POC Glucose (mg/dL) Random Glucose Calcium Total Bilirubin AST ALT Alkaline Phosphatase Total Protein Albumin Globulin Albumin/Globulin Ratio Lipase Venous Blood Potassium 4.0 Urine Color Urine Clarity Urine pH Ur Specific [place] Urine Protein Urine Glucose (UA) Urine Ketones Urine Blood Urine Nitrate Urine Bilirubin Urine Urobilinogen Ur Leukocyte Esterase Urine RBC (Auto) Urine Microscopic WBC 12/10/17 12/11/17 12/11/17 22:44 05:41 07:34 WBC 5.9 RBC Hgb Hct MCV MCH MCHC RDW Plt Count MPV Neut % (Auto) Lymph % (Auto) [place] % (Auto) Eos % (Auto) Baso % (Auto) Neut # (Auto) Lymph # (Auto) [place] # (Auto) Eos # (Auto) Baso # (Auto) ESR PT INR APTT pO2 VBG pH VBG pCO2 VBG HCO3 VBG Total CO2 VBG O2 Sat (Calc) VBG Base Excess VBG Potassium Glucose Lactate FiO2 Sodium Potassium Chloride Carbon Dioxide Anion Gap BUN Creatinine Est GFR ( Amer) Est GFR (Non-Af Amer) POC Glucose (mg/dL) 154 H 104 Random Glucose Calcium Total Bilirubin AST ALT Alkaline Phosphatase Total Protein Albumin Globulin Albumin/Globulin Ratio Lipase Venous Blood Potassium Urine Color Urine Clarity Urine pH Ur Specific [place] Urine Protein Urine Glucose (UA) Urine Ketones Urine Blood Urine Nitrate Urine Bilirubin Urine Urobilinogen Ur Leukocyte Esterase Urine RBC (Auto) Urine Microscopic WBC 12/11/17 10:40 WBC RBC Hgb Hct MCV MCH MCHC RDW Plt Count MPV Neut % (Auto) Lymph % (Auto) [place] % (Auto) Eos % (Auto) Baso % (Auto) Neut # (Auto) Lymph # (Auto) [place] # (Auto) Eos # (Auto) Baso # (Auto) ESR PT INR APTT pO2 VBG pH VBG pCO2 VBG HCO3 VBG Total CO2 VBG O2 Sat (Calc) VBG Base Excess VBG Potassium Glucose Lactate FiO2 Sodium Potassium Chloride Carbon Dioxide Anion Gap BUN Creatinine Est GFR ( Amer) Est GFR (Non-Af Amer) POC Glucose (mg/dL) 147 H Random Glucose Calcium Total Bilirubin AST ALT Alkaline Phosphatase Total Protein Albumin Globulin Albumin/Globulin Ratio Lipase Venous Blood Potassium Urine Color Urine Clarity Urine pH Ur Specific [place] Urine Protein Urine Glucose (UA) Urine Ketones Urine Blood Urine Nitrate Urine Bilirubin Urine Urobilinogen Ur Leukocyte Esterase Urine RBC (Auto) Urine Microscopic WBC Accession No. : [id number] Patient Name / ID : MONTSE Fletcher / [id number] Exam Date : 12/10/2017 13:01:19 ( Approved ) Study Comment : Sex / Age : M / 77Y Creator : Reena Rodriguez MD Dictator : Reena Rodriguez MD Calculating Machine Mechanic : Senior Military Analyst : Reena Rodriguez MD Approver2 : Report Date : 12/10/2017 14:55:32 My Comment : Date of service: 12/10/2017 PROCEDURE: MR LUMBAR SPINE WITH AND WITHOUT CONTRAST HISTORY: h/o osteomyelitis/discitis on previous mri COMPARISON: 11/21/2017 TECHNIQUE: Multiecho multiplanar sequences were performed through the lumbar spine with and without the use of intravenous contrast. 20 cc Omniscan was injected intravenously. FINDINGS: There is normal alignment of the lumbar vertebral bodies. There is normal lumbar lordosis. Bone marrow signal is heterogeneous without evidence for abnormal enhancement. There are multilevel Schmorl's nodes in the lumbar spine. The conus medullaris terminates at a normal level and the nerve roots of cauda equina are normal. There is interval increase in size of abnormal enhancing area in the right paravertebral region and involving the medial psoas muscle at L3 now measuring 2.7 x 1.7 x 4.7 cm. Incompletely imaged are simple cysts in both kidneys. There is multilevel disc degeneration with loss of T2 signal and desiccation of the T12-L1 and L1-2 discs. Also noted is abnormal T2 hyperintense signal in the L1-2 disc and in the midportion of the L2-3 disc. There is abnormal peripheral disc/ endplate marrow enhancement at L2-3, L3-4 and L4-5, worse at L2-3 corresponding to the area of abnormal signal. No significant interval change since the prior examination. T12-L1: No disc herniation, spinal canal stenosis or neural foraminal narrowing. L1-2: No large disc herniation, spinal canal stenosis or neural foraminal narrowing. L2-3: Posterior disc bulge without spinal canal stenosis or neural foraminal narrowing. L3-4: Posterior disc bulge without spinal canal stenosis or neural foraminal narrowing. L4-5: Diffuse posterior disc bulge with superimposed central, right posterolateral and foraminal disc protrusions which in combination with mild ligamentum flavum infolding result in mild spinal canal stenosis. Moderate bilateral facet arthropathy contribute to moderate right and mild left neural foraminal narrowing. L5-S1: No disc herniation, spinal canal stenosis or neural foraminal narrowing. OTHER FINDINGS: None. IMPRESSION: 1. Interval increase in size of right paraspinous/medial psoas phlegmon at L3 now measuring 2.7 x 1.7 x 4.7 cm. No evidence of epidural abscess. 2. Redemonstration of discitis osteomyelitis at L2-3, L3-4 and L4-5, worse at L2 -3. 3. Additional comments as described above. Accession No. : [id number] Patient Name / ID : MONTSE Fletcher / [id number] Exam Date : 12/10/2017 11:57:20 ( Approved ) Study Comment : Sex / Age : M / 77Y Creator : Reena Rodriguez MD Dictator : Reena Rodrgiuez MD Calculating Machine Mechanic : Senior Military Analyst : Reena Rodriguez MD Approver2 : Report Date : 12/10/2017 13:09:43 My Comment : Date of service: 12/10/2017 PROCEDURE: CT Abdomen and Pelvis without intravenous contrast HISTORY: right flank pain x 3 months worsening COMPARISON: None. TECHNIQUE: CT scan of the abdomen and pelvis was performed without administration of intravenous contrast. Oral contrast was not administered. Coronal and sagittal reformatted images were obtained. . Radiation dose: Total exam DLP = 940.04 mGy-cm. This CT exam was performed using one or more of the following dose reduction techniques: Automated exposure control, adjustment of the mA and/or kV according to patient size, and/or use of iterative reconstruction technique. FINDINGS: LOWER THORAX: There is dependent atelectasis in the lung bases. LIVER: Normal in size. No intrahepatic ductal dilatation. GALLBLADDER AND BILE DUCTS: No calcified gallstones. No biliary dilatation PANCREAS: Normal in size. No ductal dilatation. SPLEEN: Normal in size. ADRENALS: Normal in size. No discrete nodule. KIDNEYS AND URETERS: Normal in size without nephrolithiasis. No hydronephrosis. There are stable simple cysts, the largest 8.2 x 12.0 x 11.0 cm exophytic simple cyst in the lower pole of the right kidney, not significantly changed in size and appearance since the prior examination. VASCULATURE: No aortic aneurysm. BOWEL: The small bowel loops are normal in caliber. The colon is normal in size. No bowel dilatation or wall thickening. No bowel obstruction. APPENDIX: Normal appendix. PERITONEUM: No free fluid. No free air. LYMPH NODES: No enlarged lymph nodes. BLADDER: Well distended and grossly normal in appearance. REPRODUCTIVE: The prostate gland is normal in size BONES: No acute fracture. Diffuse bone demineralization. Ankylosing spondylitis in the visualized thoracic and upper lumbar spine. Large multilevel Schmorl's nodes in the lower lumbar vertebral bodies. OTHER FINDINGS: There are bilateral moderate sized fat containing inguinal hernias. There is herniation of part of the right lateral urinary bladder into the node right inguinal hernia. IMPRESSION: No acute abdominal or pelvic abnormality. Little interval change 8.2 x 12.0 x 11.0 cm exophytic simple cyst in the lower pole of the right kidney. Bilateral moderate sized inguinal hernia with herniation of portion of the right lateral urinary bladder into the right inguinal hernia. The left inguinal hernia is predominantly contains fat. No other significant interval change 3 Accession No. : [id number] Patient Name / ID : MONTSE Fletcher / [id number] Exam Date : 11/22/2017 11:43:26 ( Approved ) Study Comment : Sex / Age : M / 77Y Creator : Fernando Oliveira MD Dictator : Fernando Oliveira MD Calculating Machine Mechanic : Senior Military Analyst : Fernando Oliveira MD Approver2 : Report Date : 11/22/2017 14:06:53 My Comment : Date of service: 11/22/2017 PROCEDURE: LUMBAR SPINE MRI WITH AND WITHOUT CONTRAST HISTORY: back pain with abnormal MRI w/o contrast COMPARISON: Noncontrast lumbar spine MRI 11/21/2017. TECHNIQUE: An MR examination of the lumbar spine was performed using fat-suppressed T1 weighted imaging in sagittal and axial planes both prior to and following intravenous gadolinium administration. FINDINGS: There is a heterogeneous pattern of Marrow which is again identified throughout the lumbar spine as well as the visualized T12 vertebral body in a pattern that may reflect marrow disorder. No interval fracture or spondylolisthesis although numerous Schmorl's nodes are identified affecting upper and lower endplates from L2 through L5 once again. While there is limited enhancement is seen associated with degenerative endplates at L2, L3, L4 and L5, many of which are associated with Schmorl's node defects, the previously described signal abnormality at the inferior endplate of L2 and superior endplate of L3 enhances enhancement is prominent at the right paraspinal soft tissue within or medial to the upper right psoas muscle and pattern remains suggestive of limited discitis osteomyelitis and myositis or phlegmon medial to the upper right psoas muscle. Abscess is not favored here. This area measures approximately 1.2 x 3.2 x 2.1 cm lateral to the right of the L2-3 disc interspace level and right side of the L3 vertebral body. No definite suspicious epidural or intrathecal enhancement identified throughout the exam. [id number] degenerative central canal stenosis is again reiterated at L4- 5. Incidental note is made once again of bilateral renal cysts, right greater than left. IMPRESSION: Enhancement at the mid to right side endplates of the L2-3 intervertebral disc space is identified while this could be at least in part on a degenerative basis greater enhances appreciated at the right paraspinal soft tissue within or medial to the right psoas muscle at this level and to the right of the L3 vertebral body level as well. Therefore the pattern suspicious for limited discitis osteomyelitis with right paraspinal phlegmon favored over abscess. Please see discussion above. Assessment & Plan (1) Lumbar discitis Status: Acute (2) Hip pain, right Status: Acute - Assessment and Plan (Free Text) Assessment: A/P- 77 year old male with DM II, HTN admitted with back/right hip pain and had MRI which is read as L2-3 diskitis with ? paraspinous phlegmon , no abscess. no signs of sepsis no fever normal wbc count low ESR ( normal value). Ideally would need bone biopsy to r/o OM , specially since as per IR there is no fluid to drain for culture and there is no positive blood cx . The diagnosis of vertebral osteomyelitis or discitis is established based on positive culture obtained from computed tomography (CT)-guided biopsy of the involved vertebrae /or disc space Plan- check blood cx x 2. will need CT guided biopsy of the involved vertebrae or disk space to send for culture and gram stain and send for bone biopsy as well. cx should be sent for fungal and AFB stain as well. all above d/w patient and with at length. Thank you for allowing me to take part in the care of this patient.
[2017-12-11 16:27] VITALS: BP 131/76; PULSE 75; TEMP 97.7; O2SAT 96
--- NOTE | 2017-12-12 08:07 | HP ---
Copied To: Daniela Mckenna MD Attending MD: Daniela Mckenna MD HISTORY OF PRESENT ILLNESS: This is a 77-year-old [place] male with history of multiple medical problems, who was admitted through emergency room for persistent back pain. The patient was evaluated and he was found to have a picture of diskitis/osteomyelitis with phlegmon changes in the right iliopsoas muscle. The patient was admitted to medical floor, and he was resumed to be on medications. ID consult was called and also Neurosurgery consult was called. REVIEW OF SYSTEMS: Other review of systems are negative. ALLERGIES: NO KNOWN ALLERGY. MEDICATIONS: As per MAR. PAST MEDICAL HISTORY: Hypertension, type 2 diabetes mellitus, degenerative spine disease, osteoarthritis, benign prostatic hypertrophy, hypercholesterolemia. SOCIAL HISTORY: No history of smoking, EtOH, or substance abuse. FAMILY HISTORY: Noncontributory. PHYSICAL EXAMINATION: GENERAL: The patient is in bed, comfortable, not in any cardiopulmonary distress. VITAL SIGNS: With blood pressure of 149/83, temperature 98.5, respiratory rate 18, and pulse 60. HEENT: Pupils equal and reactive to light. Normal-appearing mucosa of the conjunctivae, oropharynx, and nasal membrane mucosa. NECK: Supple. No JVD. No carotid bruit. No lymph node. No thyromegaly. CHEST AND LUNGS: Bilateral symmetrical expansion. Good air exchange. No rales. No rhonchi. CARDIOVASCULAR SYSTEM: PMI not localized. S1, S2. No additional sounds. ABDOMEN: Normoactive bowel sounds. No tenderness. No organomegaly. No masses. EXTREMITIES: No cyanosis, no clubbing, no edema. CENTRAL NERVOUS SYSTEM: Alert, awake, and oriented x3. No neurological deficits could be appreciated. ASSESSMENT: 1. Possible osteomyelitis/diskitis. 2. Iliopsoas inflammation. 3. Type 2 diabetes mellitus. 4. Hypertension. PLAN: Neurosurgery and ID consult and follow recommendations. Continue current medications. Blood culture x2. Daniela Mckenna MD
--- NOTE | 2017-12-12 18:36 | DS ---
Copied To: Daniela Mckenna MD Attending MD: Daniela Mckenna MD REASON FOR ADMISSION: This is a 77-year-old [place] male with history of multiple medical problems, was admitted for possible osteomyelitis/diskitis. COURSE OF HOSPITALIZATION: Patient was admitted to medical floor. He had blood culture done that was negative. Sedimentation rate also was normal. IR did not find the patient had any access to aspirate and there was no intervention that was done. ID consult also was done and it was recommended that the patient will have a CT-guided biopsy to establish the diagnosis of osteomyelitis or diskitis. Patient was reluctant to have any procedure done at this point and discussed with the family who will take the disks of the MRI as well as reports for a second opinion by a spine surgeon. All agreed. FINAL DIAGNOSES: 1. Possibly osteomyelitis/diskitis. 2. Type 2 diabetes mellitus. 3. Hypertension. We will follow also as outpatient. Daniela Mckenna MD
== END 2017-12-11 18:35 | disposition home or self-care (01) | DRG 243 ==
LOC: H.ER 10:16 → H.ERHOLD 15:54 → H.MEDSURG1 18:03
PROVIDERS: ADMIT Internal Medicine; ATTEND Internal Medicine
DX: M46.46 Discitis, unspecified, lumbar region (principal); E11.69 Type 2 diabetes mellitus with other specified complication; M46.26 Osteomyelitis of vertebra, lumbar region; I10 Essential (primary) hypertension; E78.00 Pure hypercholesterolemia, unspecified; N40.0 Benign prostatic hyperplasia without lower urinary tract symptoms; M19.90 Unspecified osteoarthritis, unspecified site; K21.9 Gastro-esophageal reflux disease without esophagitis

== ENCOUNTER 2018-06-02 11:08 | Observation (INO) | payer MEDICAID ==
[2018-06-02 11:12] VITALS: BMI 44.6
--- NOTE | 2018-06-02 13:22 | ED PDOC ---
HPI: Back Time Seen by Provider: 06/02/18 11:23 Chief Complaint (Nursing): Back Pain Chief Complaint (Provider): Back Pain History Per: Patient History/Exam Limitations: no limitations Current Symptoms Are (Timing): Still Present Previous Symptoms: Back Pain, Chronic Pain Additional Complaint(s): 78 year old male with a past medical history of right lower back pain radiating down to his right leg. Patient initially came to this ED on 11/20 and was admitted for intractable back pain. He had an MRI revealing osteomyelitis vs. osteodiscitis and concern for abscess formation. Patient was evaluated by neurosurgery, infectious disease and IR with no acute intervention. Patient was ultimately discharged home with pain medication. He returned the following month, images were repeated and patient was discharged home. He reports that the pain continues with same characteristic and quality; no worsening of pain. Pt. denies any fever. The patient was recently seen 1 month ago at [facility] and had a CT of the lumbar spine. He was seen by a different neurosurgeon during the [facility] visit and was discharged home with no intervention. He is taking celebrex and flexeril with no relief in symptoms. He denies any fever or weakness. PMD: Miguel A Mckenna Past Medical History Reviewed: Historical Data, Nursing Documentation, Vital Signs Vital Signs: Last Vital Signs Temp 98.4 F 06/02/18 11:12 Pulse 54 L 06/02/18 11:12 Resp 18 06/02/18 11:12 BP 155/85 H 06/02/18 11:12 Pulse Ox 94 L 06/02/18 11:12 - Medical History PMH: Benign Prostatic Hyperplasia, HTN, Hypercholesterolemia Denies: Chronic Kidney Disease - Surgical History Surgical History: No Surg Hx - Family History Family History: States: Unknown Family Hx - Home Medications Home Medications: Ambulatory Orders Medication Instructions Recorded Allopurinol [Zyloprim] 300 mg PO HS 11/20/17 Aspirin [Ecotrin] 81 mg PO DAILY 11/20/17 Donepezil [Aricept] 5 mg PO HS 11/20/17 Finasteride [Proscar] 5 mg PO DAILY 11/20/17 GlipiZIDE [Glucotrol] 10 mg PO BID 11/20/17 Losartan/Hydrochlorothiazide 1 each PO DAILY 11/20/17 [Losartan-Hctz 50-12.5 mg Tab] Metformin HCl [Glucophage] 500 mg PO BID 11/20/17 Metoprolol Succinate [Toprol Xl] 25 mg PO DAILY 11/20/17 Pravastatin Sodium [Pravachol] 40 mg PO HS 11/20/17 Tamsulosin [Flomax] 0.4 mg PO DAILY 11/20/17 Oxybutynin [Ditropan Tab] 5 mg PO HS 11/22/17 Acetaminophen/Codeine NO 2 1 tab PO Q8 PRN 12/10/17 [Tylenol/Cod 300 MG-15 MG] Celecoxib [Celebrex] 100 mg PO DAILY PRN 06/02/18 Chlorzoxazone 250 mg PO DAILY PRN 06/02/18 Linaclotide [Linzess] 145 mcg PO DAILY PRN 06/02/18 - Allergies Allergies/Adverse Reactions: Allergies Allergy/AdvReac Type Severity Reaction Status Date / Time No Known Allergies Allergy Verified 11/20/17 18:21 Review of Systems ROS Statement: Except As Marked, All Systems Reviewed And Found Negative Constitutional: Negative for: Fever Musculoskeletal: Positive for: Back Pain, Leg Pain Neurological: Negative for: Weakness Physical Exam - Reviewed Nursing Documentation Reviewed: Yes Vital Signs Reviewed: Yes - Physical Exam Appears: Positive for: Non-toxic, No Acute Distress Head Exam: Positive for: ATRAUMATIC, NORMOCEPHALIC Skin: Positive for: Normal Color, Warm, Dry Eye Exam: Positive for: Normal appearance, EOMI, PERRL ENT: Positive for: Normal ENT Inspection Neck: Positive for: Normal, Painless ROM, Supple Cardiovascular/Chest: Positive for: Regular Rate, Rhythm. Negative for: Murmur Respiratory: Positive for: Normal Breath Sounds. Negative for: Respiratory Dis tress Gastrointestinal/Abdominal: Positive for: Normal Exam, Soft. Negative for: Tenderness Back: Positive for: Other (mild right paralumbar tenderness; (-) swelling; (-) erythema). Negative for: Vertebral Tenderness Extremity: Positive for: Other (straight leg test on right was negative; 5/5 strength bilaterally for lower extremties; sensation intact) Neurologic/Psych: Positive for: Alert, Oriented - Laboratory Results Result Diagrams: 06/02/18 13:25 06/02/18 13:25 - ECG O2 Sat by Pulse Oximetry: 94 (RA) Pulse Ox Interpretation: Abnormal Medical Decision Making Medical Decision Makin Impression: chronic pain Plan: --CMP --CRP --CBC with differential --erythrocyte sedimentation rate --spinal lumbar w/wo SALMA MRI --valium 5 mg PO --Ultram 50 mg PO 1320 Pt. is ambulating in ED, steady gait, neuro is intact. Discussed case with Dr. Mckenna, who is requesting to repeat MRI and labs. 1430 Pt. sleeping comfortably. 1530 Pt. sleeping comfortably. 1630 Pt. returned from MRI. Pt. complained of return of pain s/p moving to MRI t able, lying flat. Repeat valium po given. Pt. feeling better, neuro intact. [address] Mckenna, will admit for intractable back pain. Scribe Attestation: Documented by Jeison Atkins, acting as a scribe for Daya Pak PA-C. Provider Scribe Attestation: All medical record entries made by the Scribe were at my direction and personally dictated by me. I have reviewed the chart and agree that the record accurately reflects my personal performance of the history, physical exam, medical decision making, and the department course for this patient. I have also personally directed, reviewed, and agree with the discharge instructions and disposition. Disposition - Clinical Impression Clinical Impression: Chronic back pain - Patient ED Disposition Is Patient to be Admitted: Yes - Disposition Disposition Time: 18:04 Condition: STABLE Forms: Digital Lab (Lao)
[2018-06-02 13:54] LABS: BASO # 0.1 K/uL (0.0-0.2); BASO % 1.1 % (0.0-2.0); EOS # 0.4 K/uL (0.0-0.7); EOS % 6.8 % (0.0-4.0); HEMOGLOBIN 14.9 g/dL (12.0-18.0); LYMPH # 2.8 K/uL (1.0-4.3); LYMPH % 43.7 % (20.0-40.0); MEAN CELL VOLUME 82.7 fl (80.0-94.0); MEAN CORPUSCULAR HEMOGLOBIN 26.6 pg (27.0-31.0); MEAN CORPUSCULAR HGB CONC 32.2 g/dL (33.0-37.0); MEAN PLATELET VOLUME 8.8 fl (7.2-11.7); MONO # 0.6 K/uL (0.0-0.8); MONO % 9.4 % (0.0-10.0); NEUT # 2.5 K/uL (1.8-7.0); RBC 5.6 Mil/uL (4.40-5.90); RED CELL DISTRIBUTION WIDTH 17.7 % (11.5-14.5); WHITE BLOOD COUNT 6.4 K/uL (4.8-10.8)
[2018-06-02 14:05] LABS: ALB/GLOB RATIO 1.5 (1.0-2.1); ALBUMIN 4.1 g/dL (3.5-5.0); ALT/SGPT 47 U/L (21-72); AST/SGOT 23 U/L (17-59); BLOOD UREA NITROGEN 33 mg/dl (9-20); CALCIUM 9.7 mg/dL (8.4-10.2); GFR NON-AFRICAN AMERICAN 59
[2018-06-02] MEDS ORDERED: Gadodiamide 287 MG/ML VIAL (15ML) IV ONE (14:41)
--- NOTE | 2018-06-02 16:58 | MRI ---
Date of service: 06/02/2018 PROCEDURE: MR LUMBAR SPINE WITH AND WITHOUT CONTRAST HISTORY: back pain COMPARISON: Comparison is made to the previous study dated 11/22/2017 and study dated 12/10/2017 TECHNIQUE: Multiecho multiplanar sequences were performed through the lumbar spine with and without the use of intravenous contrast. FINDINGS: Normal lumbar lordosis. No evidence of acute compression deformity. Again noted are severe endplate degenerative changes and multiple Schmorl nodes. No evidence of bone marrow edema or destructive bony lesion. Conus medullaris unremarkable at the level of T12 There is 3.8 centimeters cyst at midpole left kidney. There also 3.6 centimeter cyst at the lower pole of the left kidney. Large cystic lesion partially imaged exophytic from the lower pole of the right kidney. There is heterogeneous abnormal increased enhancement noted at the right aspect of L2-L3 without evidence of discrete fluid collection. Findings may be due to acute arthritic changes. The possibility of underlying infectious process is not totally excluded. T12-L1: No disc herniation, spinal canal stenosis or neural foraminal narrowing. L1-2: No evidence of significant spinal or neural foraminal narrowing. L2-3: . there is a small bulging disc with posterior ligament and facet joint hypertrophy which resulting in mild thecal sac narrowing. L3-4: There is a small bulging this associated with posterior ligament and facet joint hypertrophy which resulting in mild thecal sac narrowing. L4-5: There is a small broad-based bulging disc associated with posterior ligament and facet joint hypertrophy which resulting in mild thecal sac narrowing L5-S1: No disc herniation, spinal canal stenosis or neural foraminal narrowing. OTHER FINDINGS: None. IMPRESSION: Severe disc and endplate degenerative changes noted more prominent at L2-L3 and L4-L5. Multilevel small posterior osteophyte bulging disc associated with posterior ligament and facet joint hypertrophy which resulting in mild thecal sac narrowing. Heterogeneous abnormal increased enhancement noted at the right aspect of L2-L3 likely due to severe degenerative changes. No evidence of discrete enhancing wall fluid collection. No evidence of destructive mass lesion or abnormal signal in adjacent disc. Similar findings were noted in the previous study dated 12/10/2017 No significant interval change otherwise noted since the prior study.
[2018-06-02] MEDS ORDERED: CHLORZOXAZONE 250 MG PO PRN (22:40)
[2018-06-02] MEDS ORDERED: [UNRECOGNIZED DRUG - REMARK] PO PRN (22:40)
[2018-06-02] MEDS ORDERED: Pravastatin Sodium 40 MG TAB PO SCH (22:45)
[2018-06-02] MEDS: Insulin Lispro (humaLOG) 100 Units/ml Inj SC SCH (22:57)
[2018-06-02 23:26] VITALS: RESP 20
[2018-06-03] MEDS: Insulin Lispro (humaLOG) 100 Units/ml Inj SC SCH ×3 (06:48→13:27)
[2018-06-03 08:16] VITALS: TEMP 98; O2SAT 95
[2018-06-03] MEDS ORDERED: Metoprolol Succinate 25 mg XL Tab PO SCH (09:00)
[2018-06-03] MEDS ORDERED: HCTZ/Losartan 12.5/50 Tab PO SCH (09:00)
[2018-06-03] MEDS ORDERED: Enoxaparin 40 mg Syringe SC SCH (09:00)
[2018-06-03 10:33] VITALS: BP 156/89; PULSE 77
--- NOTE | 2018-06-03 11:50 | CP.PCM.CON ---
History of Present Illness - History of Present Illness History of Present Illness: 78 yo man w/ acute on chronic lower back pain is referred for pain management. He was admitted last year for a similar presentation, at the time there was concern for osteomyelitis, discitis, and paraspinal abscess. Work-up was negati ve for infection and patient never had a biopsy. On this admission, once again there was a site of hyperintensity at right L2-3 segment. His pain mainly starts in the right lower back and wraps around the right lateral hip to the lateral thigh to the knee, without going past the knee or involving the right groin. There is paresthesia, numbness, weakness in the right leg. The R/B/A of injection was discussed with the patient and his son, it was decided to try medical management first. If pain is refractory to medications, we may consider injection once patient is cleared by ID. Past Patient History - Infectious Disease Hx of Infectious Diseases: None - Past Medical History & Family History Past Medical History?: Yes - Past Social History Smoking Status: Never Smoked - CARDIAC Hx Cardiac Disorders: Yes (hypertension) Hx Hypertension: Yes - PULMONARY Hx Respiratory Disorders: No - NEUROLOGICAL Hx Neurological Disorder: No - HEENT Hx HEENT Problems: Yes Hx Cataracts: Yes Other/Comment: hx of cataract surgery. Use eyeglasses - RENAL Hx Chronic Kidney Disease: No - ENDOCRINE/METABOLIC Hx Endocrine Disorders: Yes Hx Diabetes Mellitus Type 2: Yes - HEMATOLOGICAL/ONCOLOGICAL Hx Blood Disorders: No - INTEGUMENTARY Hx Dermatological Problems: No - MUSCULOSKELETAL/RHEUMATOLOGICAL Hx Musculoskeletal Disorders: No Hx Falls: No - GASTROINTESTINAL Hx Gastrointestinal Disorders: Yes Hx Gastroesophageal Reflux: Yes - GENITOURINARY/GYNECOLOGICAL Hx Genitourinary Disorders: Yes (bph) - PSYCHIATRIC Hx Psychophysiologic Disorder: No Hx Substance Use: No - SURGICAL HISTORY Hx Surgeries: Yes Hx Cataract Extraction: Yes Hx Cardiac Catheterization: Yes Other/Comment: Prostate surgery - ANESTHESIA Hx Anesthesia: Yes Hx Anesthesia Reactions: No Hx Malignant Hyperthermia: No Has any member of the family had a problem w/ anesthesia?: No Meds Allergies/Adverse Reactions: Allergies Allergy/AdvReac Type Severity Reaction Status Date / Time No Known Allergies Allergy Verified 11/20/17 18:21 - Medications Medications: Current Medications Acetaminophen/Codeine Phosphate (Tylenol/Cod 300 Mg-15 Mg) 1 tab PO Q8 PRN PRN Reason: Pain, severe (8-10) Allopurinol (Zyloprim) 300 mg PO [facility] Last Admin: 06/02/18 23:37 Dose: 300 mg Aspirin (Ecotrin) 81 mg PO DAILY [facility] Last Admin: 06/03/18 10:31 Dose: 81 mg Celecoxib (Celebrex) 100 mg PO DAILY PRN PRN Reason: Pain, moderate (4-7) Donepezil HCl (Aricept) 5 mg PO [facility] Last Admin: 06/02/18 23:37 Dose: 5 mg Enoxaparin Sodium (Lovenox) 40 mg SC DAILY [facility]; Protocol Finasteride (Proscar) 5 mg PO DAILY [facility] Last Admin: 06/03/18 10:31 Dose: 5 mg Glipizide (Glucotrol) 10 mg PO BID [facility] Last Admin: 06/03/18 10:31 Dose: 10 mg HCTZ/Losartan Potassium (Hyzaar 12.5 Mg-50 Mg) 1 tab PO DAILY [facility] Last Admin: 06/03/18 10:32 Dose: 1 tab Home Med (Chlorzoxazone [Chlorzoxazone]) 250 mg PO DAILY PRN PRN Reason: Muscle spasm Home Med (Linaclotide [Linzess]) 145 mcg PO DAILY PRN PRN Reason: Constipation Insulin Human Lispro (Humalog) 0 units SC [facility]; Protocol Last Admin: 06/03/18 06:48 Dose: Not Given Ketorolac Tromethamine (Toradol) 15 mg IVP Q6 PRN PRN Reason: Pain, moderate (4-7) Ketorolac Tromethamine (Toradol) 30 mg IVP Q6 PRN PRN Reason: Pain, severe (8-10) Last Admin: 06/03/18 10:26 Dose: 30 mg Metformin HCl (Glucophage) 500 mg PO BID [facility] Last Admin: 06/03/18 10:31 Dose: 500 mg Metoprolol Succinate (Toprol Xl) 25 mg PO DAILY [facility] Last Admin: 06/03/18 10:31 Dose: 25 mg Oxybutynin Chloride (Ditropan Tab) 5 mg PO [facility] Last Admin: 06/02/18 23:37 Dose: 5 mg Pravastatin Sodium (Pravachol) 40 mg PO [facility] Last Admin: 06/02/18 23:37 Dose: 40 mg Tamsulosin HCl (Flomax) 0.4 mg PO DAILY [facility] Last Admin: 06/03/18 10:31 Dose: 0.4 mg Physical Exam - Back Exam Back exam: NORMAL INSPECTION, paraspinal tenderness, vertebral tenderness - Neurological Exam Additional comments: SLR negative on the right. Femoral stretch equivocal. Results - Vital Signs Recent Vital Signs: Last Vital Signs Temp 98 F 06/03/18 08:15 Pulse 77 06/03/18 10:31 Resp 20 06/03/18 08:15 BP 156/89 H 06/03/18 10:31 Pulse Ox 95 06/03/18 08:15 - Labs Result Diagrams: 06/02/18 13:25 06/02/18 13:25 Labs: Laboratory Results - last 24 hr 06/02/18 06/02/18 06/02/18 13:25 13:25 22:33 WBC 6.4 RBC 5.60 Hgb 14.9 Hct 46.3 MCV 82.7 MCH 26.6 L MCHC 32.2 L RDW 17.7 H Plt Count 156 MPV 8.8 Neut % (Auto) 39.0 L Lymph % (Auto) 43.7 H [place] % (Auto) 9.4 Eos % (Auto) 6.8 H Baso % (Auto) 1.1 Neut # (Auto) 2.5 Lymph # (Auto) 2.8 [place] # (Auto) 0.6 Eos # (Auto) 0.4 Baso # (Auto) 0.1 ESR 14 Sodium 141 Potassium 3.9 Chloride 99 Carbon Dioxide 30 Anion Gap 16 BUN 33 H Creatinine 1.2 Est GFR ( Amer) > 60 Est GFR (Non-Af Amer) 59 POC Glucose (mg/dL) 96 Random Glucose 131 H Calcium 9.7 Total Bilirubin 0.7 AST 23 ALT 47 Alkaline Phosphatase 77 Total Protein 6.8 Albumin 4.1 Globulin 2.7 Albumin/Globulin Ratio 1.5 06/03/18 04:45 WBC RBC Hgb Hct MCV MCH MCHC RDW Plt Count MPV Neut % (Auto) Lymph % (Auto) [place] % (Auto) Eos % (Auto) Baso % (Auto) Neut # (Auto) Lymph # (Auto) [place] # (Auto) Eos # (Auto) Baso # (Auto) ESR Sodium Potassium Chloride Carbon Dioxide Anion Gap BUN Creatinine Est GFR ( Amer) Est GFR (Non-Af Amer) POC Glucose (mg/dL) 107 Random Glucose Calcium Total Bilirubin AST ALT Alkaline Phosphatase Total Protein Albumin Globulin Albumin/Globulin Ratio Assessment & Plan - Assessment and Plan (Free Text) Assessment: 78 yo man w/ acute on chronic lower back pain. His pain is very likely related to the right L2-3 degenerative processes, facet hypertrophy vs right lumbar radiculopathy. R/B/A of possible injections was discussed with the patient and son, but the possibility of infection remains. If patient can be cleared by ID for intervention and the patient is agreeable, then we can consider injection. I agree that surgery evaluation is probably not necessary. - add Neurontin 100mg q8h to regimen - continue PRN opioids + NSAIDs - PT evaluation - would appreciate ID input into possibility of injection
--- NOTE | 2018-06-04 06:47 | HP ---
HISTORY OF PRESENT ILLNESS: This is a 78-year-old Citizen [place] male with history of multiple medical problems including degenerative spine disease, presented to emergency room with severe back pain, radiates to right lower extremity for 2 days' duration. The patient was trying to use analgesics and muscle relaxant at home with no improvement. The patient was evaluated in the emergency room, and he was admitted for further management of intractable back pain with difficulty ambulation. The patient denied to have any symptoms of cauda equina or spinal cord compression. The patient had similar symptoms before that was relieved with muscle relaxants and pain management. The patient had an MRI of the lumbosacral spine in emergency room that showed severe disc and endplate degenerative changes noted, more prominent at L2-L3 and L4-L5 with multilevel small posterior osteophyte, bulging disc associated with posterior ligament and facet joint hypertrophy which is resulting in mild thecal sac narrowing. Heterogenous abnormal increased enhancement noted at the right aspect of L2-L3, likely due to severe degenerative changes. No evidence of discrete enhancing wall fluid collection. No evidence of destructive mass lesion or abnormal signal adjacent to the disc. Similar findings were noted in the previous study dated 12/10/2017. Other review of systems is negative. ALLERGIES: NO KNOWN ALLERGY. MEDICATIONS: Reviewed and ordered as per MAR. SOCIAL HISTORY: No history of smoking, EtOH, or substance abuse. FAMILY HISTORY: Not contributory. PHYSICAL EXAMINATION: GENERAL: The patient is in bed, not in any cardiopulmonary distress. VITAL SIGNS: Blood pressure 156/89, temperature 97.5, respiratory rate 20, and pulse 54. HEENT: Pupils equal and reactive to light. Normal-appearing mucosa of the conjunctivae, oropharynx, and nasal membrane mucosa. NECK: Supple. No JVD. No carotid bruit. No lymph node. No thyromegaly. CHEST AND LUNGS: Bilateral symmetrical expansion. Good air exchange. No rales, no rhonchi. CARDIOVASCULAR SYSTEM: PMI not localized. S1, S2. No additional sounds. ABDOMEN: Normoactive bowel sounds. No tenderness. No organomegaly. No masses. EXTREMITIES: No cyanosis, no clubbing, no edema. CENTRAL NERVOUS SYSTEM: Alert, awake, oriented x2. No neurological deficit could be appreciated. ASSESSMENT: 1. Severe degenerative spine disease with radicular pain to the right lower extremity. 2. Hypertension. 3. Type 2 diabetes mellitus. PLAN: Continue current pain medications and Neurontin. Start physical therapy. Resume the patient's home medications. Accu-Cheks with insulin coverage. [facility] MD Bala
--- NOTE | 2018-06-04 08:39 | DS ---
REASON FOR ADMISSION: This is a 78-year-old [place] male with history of multiple medical problems who was admitted for severe intractable back pain with difficulty ambulation. COURSE OF HOSPITALIZATION: The patient was started on pain medications. The patient was given muscle relaxant. The patient was seen by pain management and he was started on gabapentin. The patient's symptoms gradually improved and the patient was able to ambulate and he was discharged home as per his desire. The patient did not have any symptoms or signs of spinal cord compression or cauda equina. FINAL DIAGNOSES: 1. Severe degenerative spine disease with radiculopathy. 2. Hypertension. 3. Type [address] [facility] MD Bala
== END 2018-06-03 14:46 | disposition home or self-care (01) ==
LOC: H.ER 11:08 → INTOOBSV 17:53 → H.ERHOLD 17:53 → H.MEDSURG1 22:06
PROVIDERS: ADMIT Internal Medicine; ATTEND Internal Medicine
DX: M54.10 Radiculopathy, site unspecified (principal); G89.29 Other chronic pain; I10 Essential (primary) hypertension; K21.9 Gastro-esophageal reflux disease without esophagitis; N40.0 Benign prostatic hyperplasia without lower urinary tract symptoms; Z79.82 Long term (current) use of aspirin; H26.9 Unspecified cataract; Z79.84 Long term (current) use of oral hypoglycemic drugs; Z79.899 Other long term (current) drug therapy; M54.5 Low back pain; E11.9 Type 2 diabetes mellitus without complications; E78.00 Pure hypercholesterolemia, unspecified
CPT/HCPCS: 72158; 80053; 82948; 85025; 85651; 86140; 96374; 97161; 99285; A9579; G0378; G8978; G8979; J1885; J2270